=== PATIENT | female | born 1960 | race African-American/Black ===

== ENCOUNTER → 2018-02-06 | Day surgery (SDC) | payer OTHER ==
[~2018-02-06] MED LIST: ESCITALOPRAM OX10 MG PO; IV RINGERS,LACTATED 1000ML 1,000 ML IV SCH; LIDOCAINE 1% PF 2 ML VIAL. ID PRN; MECL12.52 PO; MIDAZOLAM HCL/PF 2 MG/2 ML VIAL. IV PRN; NAPR-514 PO; PROPOFOL 40 ML IV ONE; fentaNYL PF VIAL 100 MCG/2 ML VIAL IV PRN
--- NOTE | 2018-02-06 12:32 | PDOC2 ---
CONSULT Date of Consult Date of Consult DATE: 02/06/18 TIME: Reason for Consult Reason for Consult: Colorectal cancer screening History of Present Illness Reason for Visit: 57 year old female presents for colorectal cancer screening. Bowel habits are regular without diarrhea of constipation. Weight and appetite are stable. Rectal bleeding per rectum is also noted over the past three months. Last colonoscopy over a decade ago was unrevealing. She otherwise is without additional complaints. Past Medical History Musculoskeletal: Osteoarthritis Past Surgical History Past Surgical History: , Tubal Ligation Family History Family History: Cancer (uterine mother) Social History No ALCOHOL: none Current Medications Current Medications Current Medications Midazolam HCl (Versed) 2 mg PRN 1X PRN IV PRIOR TO PROCEDURE; Start 02/06/18 at 11:15; Stop 02/07/18 at 11:14 Fentanyl Citrate (Fentanyl 2ml Vial) 25 mcg PRN Q5MIN PRN IV X 2 DOSES FOR PAIN ; Start 02/06/18 at 11:15; Stop 02/07/18 at 11:14 Fentanyl Citrate (Fentanyl 2ml Vial) 50 mcg PRN Q5MIN PRN IV X 2 DOSES FOR PAIN ; Start 02/06/18 at 11:15; Stop 02/07/18 at 11:14 Ringer's Solution 1,000 ml @ 125 mls/hr Q8H IV Last administered on at 11:25; Start 02/06/18 at 11:02; Stop 02/06/18 at 23:01 Lidocaine HCl (Xylocaine-Mpf 1% 2ml Vial) 2 ml 1X PRN PRN ID IV START; Start 02/06/18 at 11:15; Stop 02/07/18 at 11:14 Midazolam HCl (Versed) 2 mg PRN 1X PRN IV PRIOR TO PROCEDURE; Start 02/06/18 at 11:15; Stop 02/07/18 at 11:14; Status Cancel Fentanyl Citrate (Fentanyl 2ml Vial) 25 mcg PRN Q5MIN PRN IV X 2 DOSES FOR PAIN ; Start 02/06/18 at 11:15; Stop 02/07/18 at 11:14; Status Cancel Fentanyl Citrate (Fentanyl 2ml Vial) 50 mcg PRN Q5MIN PRN IV X 2 DOSES FOR PAIN ; Start 02/06/18 at 11:15; Stop 02/07/18 at 11:14; Status Cancel Ringer's Solution 1,000 ml @ 125 mls/hr Q8H IV ; Start 02/06/18 at 11:02; Stop 02/06/18 at 23:01; Status UNV Lidocaine HCl (Xylocaine-Mpf 1% 2ml Vial) 2 ml 1X PRN PRN ID IV START; Start 02/06/18 at 11:15; Stop 02/07/18 at 11:14; Status UNV Propofol 40 ml @ As Directed STK-MED ONCE IV ; Start 02/06/18 at 12:05; Stop 02/06/18 at 12:07; Status DC Active Scripts Active Reported Naproxen 500 Mg Tablet 500 Mg PO BID Meclizine Hcl 12.5 Mg Tablet 12.5 Mg PO PRN PRN Escitalopram Oxalate 10 Mg Tablet 10 Mg PO DAILY Allergies Allergies: Coded Allergies: No Known Drug Allergies (Unverified , 02/06/18) Physical Exam General: Alert, Oriented X3 Lungs: Clear to auscultation Heart: Regular rate, Normal S1, Normal S2 Abdomen: Normal bowel sounds, Soft, No tenderness Vitals VITALS Vital Signs Date Time Temp Pulse Resp B/P (MAP) Pulse Ox O2 Delivery O2 Flow Rate FiO2 02/06/18 10:55 98.0 81 18 98 98.0 Assessment/Plan Assessment/Plan CRC screening- is recommended at this time. PARI DE LEON MD Feb 06, 2018 12:32
[2018-02-06 13:03] VITALS: BP 104/64
== END | disposition home or self-care (01) ==
LOC: SURG 10:30
PROVIDERS: ATTEND Internal Medicine Gastroenterology
DX: K64.0 First degree hemorrhoids (principal); M19.90 Unspecified osteoarthritis, unspecified site; Z98.51 Tubal ligation status; Z98.890 Other specified postprocedural states; Z79.899 Other long term (current) drug therapy
CPT/HCPCS: 45378; J2704